=== PATIENT | male | born 1965 | race Two or more races ===

== ENCOUNTER 2017-03-31 15:07 | Emergency (ER) | payer OTHER ==
[~2017-03-31] VITALS: Ht 177.8 cm; Wt 80.1 kg
[2017-03-31] MEDS ORDERED: SODIUM CHLORIDE 0.9% 1,000ML IVBOLUS ONE (15:30)
[2017-03-31] MEDS ORDERED: PANTOPRAZOLE 40 MG IV IVPush ONE (15:30)
[2017-03-31] MEDS ORDERED: SODIUM CHLORIDE FLUSH 10ML SYR IVF ONE (15:30)
[2017-03-31 15:49] LABS: HEMATOCRIT 54.4 % (39.2-51.8); HEMOGLOBIN 17.9 g/dL (13.7-18.0); WHITE BLOOD COUNT 8.5 x10^3/uL (3.4-10)
[2017-03-31] MEDS ORDERED: PANTOPRAZOLE 40 MG IV ONE (15:58)
[2017-03-31 15:59] LABS: ASPARTATE AMINO TRANSFERASE 26 U/L (15-37); BLOOD UREA NITROGEN 12 mg/dL (7-18)
[2017-03-31 17:47] VITALS: BP 138/100
== END 2017-03-31 17:49 | disposition home or self-care (01) ==
LOC: ED 17:21
DX: K64.4 Residual hemorrhoidal skin tags (principal)
CPT/HCPCS: 36415; 80053; 80307; 85025; 85610; 93005; 96361; 96374; 99285; C9113; J7030; G0479